=== PATIENT | male | born 1970 | race Caucasian/White ===

== ENCOUNTER 2017-01-17 09:25 | Emergency (ER) | payer BC ==
[2017-01-17] MEDS ORDERED: DOXYcycline CAP(*) 100 MG PO ONE (09:43)
--- NOTE | 2017-01-17 09:45 | UC ---
Skin Complaint HPI - HPI Summary HPI Summary: was been hunting all week, found a TICK on his right flank---unsure how long it had been there---partially removed by GF - History of Current Complaint Chief Complaint: UCSkin Time Seen by Provider: 01/17/17 09:35 Stated Complaint: TICK Hx Obtained From: Patient Onset/Duration: Sudden Onset, Lasting Days, Still Present Skin Exposure Onset/Duration: Days Ago Timing: Constant Onset Severity: Mild Current Severity: Mild Location: Discrete Aggravating Factor(s): Nothing Alleviating Factor(s): Nothing Associated Signs & Symptoms: Positive: Negative Related History: Possible Reaction to: Insect - Allergy/Home Medications Allergies/Adverse Reactions: Allergies Allergy/AdvReac Type Severity Reaction Status Date / Time No Known Allergies Allergy Verified 01/17/17 09:45 Home Medications: Home Medications Multiple Vitamins W/ Minerals [Centrum Vitamints] 1 chw PO DAILY 01/17/17 [ History Confirmed 01/17/17] Review of Systems Constitutional: Negative Skin: Other - small scabbed area with some black specks (likely tick mouth parts) Eyes: Negative ENT: Negative Respiratory: Negative Cardiovascular: Negative Gastrointestinal: Negative Genitourinary: Negative Motor: Negative Neurovascular: Negative Musculoskeletal: Negative Neurological: Negative Psychological: Negative Is Patient Immunocompromised?: No All Other Systems Reviewed And Are Negative: Yes PMH/Surg Hx/FS Hx/Imm Hx Previously Healthy: No - Gastric Bypass - Surgical History Surgical History: None - Family History Known Family History: Positive: None - Social History Occupation: Employed Full-time Lives: With Family Alcohol Use: Rare Substance Use Type: None Smoking Status (MU): Never Smoked Tobacco Type: Smokeless Tobacco Amount Used/How Often: 1 can per week - Immunization History Most Recent Influenza Vaccination: no Physical Exam Triage Information Reviewed: Yes Appearance: Well-Appearing, No Pain Distress, Well-Nourished Vital Signs Reviewed: Yes Eye Exam: Normal Eyes: Positive: Conjunctiva Clear ENT Exam: Normal ENT: Positive: Normal ENT inspection, Hearing grossly normal, Pharynx normal. Negative: Nasal congestion, Tonsillar swelling, Trismus, Muffled voice, Hoarse voice Dental Exam: Normal Neck exam: Normal Neck: Positive: Supple, Nontender Respiratory Exam: Normal Respiratory: Positive: Chest non-tender, No respiratory distress, No accessory muscle use Cardiovascular Exam: Normal Cardiovascular: Positive: RRR, Pulses Normal, Brisk Capillary Refill Musculoskeletal Exam: Normal Musculoskeletal: Positive: Strength Intact, ROM Intact, No Edema Neurological Exam: Normal Neurological: Positive: Alert, Muscle Tone Normal Psychological Exam: Normal Skin Exam: Other Skin: Positive: Other - scabbed area right side -(appears to be a partially removed TICK) Course/Dx - Course Course Of Treatment: Soap and water wash, Doxycycline,observe for and report to MD S/S of Lyme - Diagnoses Provider Diagnoses: Tick Bite, Lyme PEP Discharge - Discharge Plan Condition: Stable Disposition: HOME Patient Education Materials: Doxycycline (By mouth), Tick Bite (ED) Referrals: Richard Farley MD [Primary Care Provider] - If Needed
[2017-01-17 09:54] VITALS: BP 100/64
== END 2017-01-17 10:04 | disposition home or self-care (01) ==
LOC: UCCORT 09:25
DX: S30.861A Insect bite (nonvenomous) of abdominal wall, initial encounter (principal); W57.XXXA Bitten or stung by nonvenomous insect and other nonvenomous arthropods, initial encounter; Y92.9 Unspecified place or not applicable; F17.220 Nicotine dependence, chewing tobacco, uncomplicated; Z20.818 Contact with and (suspected) exposure to other bacterial communicable diseases
CPT/HCPCS: 99211; A9270-GY; G0463

== ENCOUNTER 2017-04-22 09:25 | Emergency (ER) | payer BC ==
[2017-04-22 09:46] VITALS: BP 107/65
--- NOTE | 2017-04-22 10:05 | UC ---
Eye Complaint HPI - HPI Summary HPI Summary: R eye itchy, watery since last night. Woke up this morning with green d/c "eye stuck shut." Denies cough, cold, n/v, uri. No rash. Vision a little blurry d/ t drainage. No photophobia. No h/a. - History of Current Complaint Chief Complaint: UCEye Stated Complaint: RIGHT EYE COMPLAINT Time Seen by Provider: 04/22/17 09:38 Hx Obtained From: Patient Pain Intensity: 0 - Allergies/Home Medications Allergies/Adverse Reactions: Allergies Allergy/AdvReac Type Severity Reaction Status Date / Time No Known Allergies Allergy Verified 04/22/17 09:40 PMH/Surg Hx/FS Hx/Imm Hx Previously Healthy: Yes - s/p gastric bypass Oct 2015 - Surgical History Surgical History: Yes Surgery Procedure, Year, and Place: GASTRIC BYPASS, 10/2015 - Family History Known Family History: Positive: None - Social History Alcohol Use: None Substance Use Type: None Smoking Status (MU): Never Smoked Tobacco Type: Smokeless Tobacco Amount Used/How Often: 1 can per week - Immunization History Most Recent Influenza Vaccination: no Review of Systems Constitutional: Negative Skin: Negative Eyes: Other - see hpi ENT: Negative Respiratory: Negative Cardiovascular: Negative Gastrointestinal: Negative Genitourinary: Negative Motor: Negative Neurovascular: Negative Musculoskeletal: Negative Neurological: Negative Psychological: Negative Is Patient Immunocompromised?: No All Other Systems Reviewed And Are Negative: Yes Physical Exam Triage Information Reviewed: Yes Appearance: Well-Appearing - sitting up conversing easily, Well-Nourished Vital Signs: Initial Vital Signs Temp 98.3 F 04/22/17 09:40 Pulse 59 04/22/17 09:40 Resp 16 04/22/17 09:40 BP 107/65 04/22/17 09:40 Pulse Ox 99 04/22/17 09:40 Vital Signs Reviewed: Yes Eye Exam: Other - R eye - + watery d/c. Conjunctiva red. Does not wear contact lenses. ENT: Positive: Pharynx normal, TM dull - TM dull rtx'd L, ok R Bilat Eac ok Neck exam: Normal Neck: Positive: Supple, Nontender, No Lymphadenopathy Respiratory Exam: Normal Respiratory: Positive: Chest non-tender, Lungs clear, Normal breath sounds, No respiratory distress, No accessory muscle use Cardiovascular Exam: Normal Cardiovascular: Positive: RRR, No Murmur, Pulses Normal, Brisk Capillary Refill Abdominal Exam: Normal Abdomen Description: Positive: Nontender Musculoskeletal Exam: Normal Neurological Exam: Normal - grossly nonfocal Psychological Exam: Normal - conversing easily and appropriately Skin Exam: Normal Eye Complaint Course/Dx - Course Course Of Treatment: Reviewed coa / tx plan. Questions as posed answered to the best of my ability. - Differential Dx/Diagnosis Provider Diagnoses: R conjunctivitis Discharge - Discharge Plan Condition: Stable Disposition: HOME Patient Education Materials: Conjunctivitis (ED), Antihistamine (By mouth) Referrals: Richard Farley MD [Primary Care Provider] -
== END 2017-04-22 10:11 | disposition home or self-care (01) ==
LOC: UCCORT 09:25
DX: H10.9 Unspecified conjunctivitis (principal); F17.220 Nicotine dependence, chewing tobacco, uncomplicated
CPT/HCPCS: 99212; G0463